=== PATIENT | female | born 1990 | race American Indian/Alaskan Native ===

== ENCOUNTER 2024-11-06 00:42 | Inpatient (IN) | payer MEDICAID, OTHER, SELFPAY ==
[2024-11-06] VITALS (19 sets, daily range): BP systolic 106–139; BP diastolic 59–89; PULSE 60–155; RESP 16–100; TEMP 36.4–37.3; O2SAT 96–98; BMI 30.8
[2024-11-06] MEDS: PROMETHAZINE INJ 25 MG/ML VIAL IM (03:53)
[2024-11-06] MEDS: MEPERIDINE INJ 50 MG/ML VIAL IM (03:54)
[2024-11-06 05:39] LABS: Basophils % (Auto) 0 % (0-2.5); Eosinophils % (Auto) 0 % (0-10); Hematocrit 39.4 % (36.0-46.0); Hemoglobin 13.4 g/dL (12.0-16.0); Immature Granulocytes % (Auto) 1 % (0-0); Immature Granulocytes Auto 0.07 Thou/mm3 (0.00-0.00); Lymphocytes # (Auto) 0.9 Thou/mm3 (1.0-4.8); Lymphocytes % (Auto) 7 % (10-50); Mean Corpuscular Hemoglobin 28.5 pg (25.0-35.0); Mean Corpuscular Volume 84 fL (80-100); Monocytes # (Auto) 0.5 Thou/mm3 (0.0-0.8); Monocytes % (Auto) 4 % (0-12); Neutrophils # (Auto) 12.2 Thou/mm3 (1.8-7.7); Neutrophils % (Auto) 89 % (37-80); Nucleated Red Blood Cell % 0 /100 WBC (0); Platelet Count 197 Thou/mm3 (140-440); RDW Standard Deviation 43.3 fL (36.4-46.3); Red Blood Count 4.71 Miln/mm3 (4.00-5.20); White Blood Count 13.7 Thou/mm3 (3.6-11.0)
--- NOTE | 2024-11-06 06:15 | PD.LDHP ---
Documentation for date of: 11/06/24 OB Labor/Induct. HPI History of Present Illness History of present illness: H and P dictated in Nuance on the STAT line #9. [id number]. Meds Home Medications and Allergies Allergies Allergy/AdvReac Type Severity Reaction Status Date / Time No Known Allergies Allergy Verified 11/06/24 01:32 OB Exam Physical Exam Vital signs: Temp Pulse Resp BP 98.3 F 69 16 114/59 L 11/06/24 00:56 11/06/24 05:54 11/06/24 00:56 11/06/24 05:54 OB Results Labs 11/06/24 05:06 Labs: Short CBC 11/06/24 Range/Units 05:06 WBC 13.7 H (3.6-11.0) Thou/mm3 Hgb 13.4 (12.0-16.0) g/dL Hct 39.4 (36.0-46.0) % Plt Count 197 (140-440) Thou/mm3
--- NOTE | 2024-11-06 06:32 | ESHP_ITS ---
RE: JOANA CASILLAS : 1990 DATE OF ADMISSION: 11/06/2024 HISTORY OF PRESENT ILLNESS: This is a 34-year-old 3, para 2 with a due date of 11/14/2024 with intrauterine at 38 weeks and 6 days, who presents to labor and delivery complaining of contractions and is noted to be in early labor. She denies any leaking or bleeding. She reports normal movement. Her care was complicated by recurrent E. coli urinary tract infections, otherwise uncomplicated. ALLERGIES: NO KNOWN DRUG ALLERGIES. MEDICATIONS: multivitamin one p.o. daily. PAST MEDICAL HISTORY: Abdominal hernia, gallstones, recurrent urinary tract infections. SOCIAL HISTORY: She denies any alcohol, drug use, or smoking. FAMILY HISTORY: Diabetes, hypertension. OBSTETRIC HISTORY: Two previous full-term normal vaginal deliveries. PAST SURGICAL HISTORY: Cholecystectomy and hernia repair. REVIEW OF SYSTEMS: She denies any chest pain, palpitations, cough, fever, shortness of breath, or lower extremity pain. PHYSICAL EXAMINATION: VITAL SIGNS: Blood pressure is 124/80, heart rate 88, respirations 18, temperature 98.2. HEENT: Oropharynx and sclerae are clear. LUNGS: Clear to auscultation bilaterally. HEART: Regular rate and rhythm. ABDOMEN: Gravid, term size consistent with estimated weight 7 pounds. PELVIC: See RN notes. EXTREMITIES: Nontender. SKIN: No gross rashes or lesion. NEUROLOGIC: No focal deficits. ASSESSMENT AND PLAN: Intrauterine at 38 weeks and 6 days, early labor, anticipate spontaneous vaginal delivery. Informed consent was obtained. The patient was made aware of the risks, complications, alternatives, benefits of operative vaginal delivery and delivery and the patient agrees with these modes of delivery if indicated. DT: 06:11:32 TT: 06:30:00 Ref: [id number] - TID: [id number]
[2024-11-06 06:36] LABS: Syphilis Nonreactive (Nonreactive)
[2024-11-06] MEDS: MINERAL OIL 30 ML UDC TOP (06:51)
[2024-11-06] MEDS: OXYTOCIN in NS 20 units 20 UNIT/1,000 ML BAG 125 UNIT IV (06:57)
[2024-11-06] MEDS: LIDOCAINE HCL 1% 20 ML VIAL INFL (06:57)
[2024-11-06] MEDS: METHYLERGONOVINE INJ 0.2 MG/ML VIAL IM (07:04)
[2024-11-06] MEDS: IBUPROFEN TAB 400 MG TABLET 800 MG PO (07:11)
--- NOTE | 2024-11-06 09:35 | PD.LDDELS ---
Data (Delgado) Data Hx Section: No : 3 Para: 2 Term: 2 : 0 : 0 Delivery Data (Delgado) Labor Data ROM Date: 11/06/24 ROM Time: 06:50 Rupture Type: AROM Amniotic Fluid: Clear Delivery Data EDC: 11/14/24 EDC calculated by:: LMP/early US confirmation Labor Onset Stage 1 Date: 11/06/24 Labor Onset Stage 1 Time: 04:30 Labor Onset Stage 2 Date: 11/06/24 Labor Onset Stage 2 Time: 06:45 Delivery Date: 11/06/24 Delivery Time: 06:54 Gestational age (weeks): 38 Gestational age (days): 6 Placenta Delivery Date: 11/06/24 Placenta Delivery Time: 07:00 Delivered by: Liu Redding Delivery nurse: Aurora Jackson Other staff at delivery: Nursery Nurse Other staff at delivery: 2nd Nurse Other staff at delivery: Nursery Nurse Other staff at delivery: Other staff at delivery: Ny Kaur Other staff at delivery: Carlota Ramírez Other staff at delivery: Hersteve Other staff at delivery: FRUIB Delivery Method Delivery: Vaginal Delivery Type: Spontaneous Presentation: Vertex Position: OA Anesthesia Type Primary Anesthesia: Local Placenta Placenta Delivery: Spontaneous Placenta Cultures Obtained: No Placenta Sent for Examination: No Cord Sample: Cord Blood Obtained Lacerations #1: Perineal: 2nd degree EBL Estimated blood loss (ml): 200 Additional Procedures None Complications Complications: None [place] Data (Delgado) [place] Data Gender: Female Weight Grams: 3520 1 Minute Total: 8 5 Minute Total: 9
--- NOTE | 2024-11-06 09:37 | ESDS_ITS ---
DS: Providers Provider Date of admission: 11/06/24 00:42 Primary care physician: Physician No Primary/Family Admitting Provider: Liu Redding MD Attending Provider on Admission: Liu Redding MD Consults: 11/06/24 07:28 Referral Routine Comment: Attending Provider on DC: Liu Redding MD Discharging Provider: Liu Redding MD DS: Diagnosis Problem List Completed Was Problem List Reviewed/Reconciled?: Yes Summary/Hosp Course Brief History: H and P dictated in Nuance on the STAT line #9. [id number]. Time Spent with Patient Time attestation: Total time spent providing and/or coordinating discharge services: Exam Vital Signs Temp Pulse Resp BP 98.7 F 63 18 113/61 11/06/24 07:20 11/06/24 08:54 11/06/24 07:20 11/06/24 08:54 Discharge Plan Plan Patient Disposition: HOME (Self Care) Patient condition on transfer: Stable Prescriptions/Referrals Prescriptions/Med Rec: New ibuprofen 600 mg tablet 600 mg PO Q6H PRN (Reason: pain) Qty: 30 0RF Referrals: No Primary/Family,Physician [Primary Care Provider] - Patient/Caregiver Discharge Instructions Discharge Activity: activity as tolerated Other Discharge Activity Instructions:: Follow up office 6 weeks Print Language: Lebanese Stand Alone Forms: Shanell Award Info., Patient Portal Info Letter, Work/Release Restrictions Discharge Order Discharge Orders: Discharge (Routine); Ordered 11/07/24 Ordered By: Liu Redding Planned Discharge Date 11/07/24
[2024-11-06 09:55] LABS: Amphetamine/Metham Scrn,Ur OB Negative (Negative); Benzoylecgonine Screen, Ur OB Negative (Negative); Opiate Screen,Urine OB Negative (Negative); THC Screen,Urine OB Negative (Negative)
[2024-11-06 13:56] LABS: Basophils % (Auto) 0 % (0-2.5); Eosinophils % (Auto) 0 % (0-10); Hematocrit 35.1 % (36.0-46.0); Hemoglobin 11.7 g/dL (12.0-16.0); Immature Granulocytes % (Auto) 1 % (0-0); Immature Granulocytes Auto 0.07 Thou/mm3 (0.00-0.00); Lymphocytes # (Auto) 0.9 Thou/mm3 (1.0-4.8); Lymphocytes % (Auto) 6 % (10-50); Mean Corpuscular HGB Conc 33.3 g/dl (31.0-37.0); Mean Corpuscular Hemoglobin 28.4 pg (25.0-35.0); Mean Corpuscular Volume 85 fL (80-100); Monocytes # (Auto) 0.7 Thou/mm3 (0.0-0.8); Monocytes % (Auto) 5 % (0-12); Neutrophils # (Auto) 12.9 Thou/mm3 (1.8-7.7); Neutrophils % (Auto) 88 % (37-80); Nucleated Red Blood Cell % 0 /100 WBC (0); Platelet Count 190 Thou/mm3 (140-440); RDW Standard Deviation 44.3 fL (36.4-46.3); Red Blood Count 4.12 Miln/mm3 (4.00-5.20); White Blood Count 14.7 Thou/mm3 (3.6-11.0)
[2024-11-07 00:18] VITALS: BP 99/62; PULSE 61; RESP 16; TEMP 36.6; O2SAT 99
[2024-11-07 03:30] VITALS: BP 100/61; PULSE 70; RESP 16; TEMP 36.6; O2SAT 97
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
[2024-11-07 08:40] VITALS: BP 107/72; PULSE 81; RESP 18; TEMP 36.7; O2SAT 97
--- NOTE | 2024-11-07 09:16 | ESPR_ITS ---
RE: JOANA CASILLAS : 1990 DATE OF SERVICE: 11/07/2024 SUBJECTIVE: day #1, the patient denies any problem or complaint. OBJECTIVE: Vital Signs: Blood pressure 100/61, heart rate 70, respirations 16, temperature is 97.9, pulse ox is 97% on room air. Lungs: Clear to auscultation bilaterally. Heart: Regular rate and rhythm. Abdomen: Fundus is firm. Extremities: Nontender. LABORATORY DATA: Hemoglobin pre-delivery is 13.4, post-delivery is 11.7. ASSESSMENT: day #1, status post spontaneous vaginal delivery. PLAN: Discharge home. Discharge instructions were given. Follow up in the office in 6 weeks. DT: 08:37:17 TT: 09:15:00 Ref: [id number] - TID: [id number]
== END 2024-11-07 14:35 | disposition home or self-care (01) | DRG 560 ==
LOC: S4SX 11-26 13:40 → S4NX 11-26 13:40
PROVIDERS: Admitting Provider Specialist; Visit Provider Specialist
DX: O70.1 Second degree perineal laceration during delivery (principal); Z37.0 Single live birth; Z3A.38 38 weeks gestation of pregnancy
CPT/HCPCS: 36415; 59025; 59409; 59899; 80307; 85025; 86780; 86850; 86900; 86901; 94762; J2175; J2210; J2550; J2590; J3490; A9270